=== PATIENT | male | born 1955 | race Caucasian/White ===

== ENCOUNTER → 2017-02-17 | Outpatient (CLI) | payer OTHER | LOC: CIMAGING 09:58 | PROVIDERS: ATTEND Family Medicine | DX: S13.170A Subluxation of C6/C7 cervical vertebrae, initial encounter (principal); M50.31 Other cervical disc degeneration, high cervical region; M50.33 Other cervical disc degeneration, cervicothoracic region; M48.02 Spinal stenosis, cervical region | CPT/HCPCS: 72050-PO ==

== ENCOUNTER 2017-11-18 17:13 | Emergency (ER) | payer OTHER ==
[2017-11-18 17:30] VITALS: BP 140/81; O2SAT 93
[2017-11-18] MEDS ORDERED: ACETAMINOPHEN 500 MG TAB PO ONE (17:36)
[2017-11-18] MEDS ORDERED: OSELTAMIVIR PHOSPHATE 75 MG CAP PO ONE (17:59)
[2017-11-18] MEDS ORDERED: IBUPROFEN 600 MG TAB PO ONE (17:59)
[2017-11-18] MEDS ORDERED: BENZONATATE 100 MG CAP PO ONE (17:59)
--- NOTE | 2017-11-18 18:04 | EDPHY ---
H & P Time Seen by Provider: 11/18/17 17:34 HPI/ROS: HPI Cough, flu-like symptoms. 62-year-old male by private vehicle. This patient complaining nonproductive cough, muscle aches and joint aches, sore throat, fever and fatigue onset evening. No ill contacts. He reports he was vaccinated for influenza. ROS: Constitutional: As above. Eyes: No discharge. No changes in vision. ENT: As above. No nasal congestion or rhinorrhea. Respiratory: As above. No shortness of breath. Cardiac: No chest pain, no palpitations. Gastrointestinal: No abdominal pain, no vomiting, no diarrhea. Genitourinary: No hematuria. No dysuria or increased frequency with urination. Musculoskeletal: No back pain. No neck pain. As above. Skin: No rashes. Neurological: No headache. No focal weakness or altered sensation. Past medical history: Denies any significant past medical history. Takes Ambien to help him sleep. Social history: Nonsmoker. No alcohol. Here by himself. Physical Exam: General Appearance: Alert, no distress. This patient is responding to questions appropriately and in full sentences. This patient appears well- hydrated and well-nourished. Eyes: Pupils equal and round no pallor or injection. No lid edema, erythema or injection. ENT, Mouth: Mucous membranes are moist. The pharyngeal tissues are unremarkable. No edema or swelling. No asymmetry suggestive of abscess. No erythema or exudates. No voice changes. No stridor. No cervical, submandibular, submental lymphadenopathy. Respiratory: There are no retractions, lungs are clear to auscultation with good air movement bilaterally. No tachypnea. Cardiovascular: Regular rate and rhythm. No murmur. Neurological: Motor sensory function is grossly intact. Cranial nerves are normal. Gait is normal. Skin: Warm and dry, no rashes. Musculoskeletal: Neck is supple and nontender. No pain on flexion of the neck. Extremities are symmetrical. All joints range without pain or impingement. Psychiatric: No agitation. No depression. Database: EKG: Imaging: Chest x-ray PA and lateral; the cardiac mediastinal silhouette is unremarkable. No evidence of infiltrate or pneumothorax. No acute cardiopulmonary disease process noted. Interpreted by me. Procedures: Emergency department course: Vital signs reviewed. He is febrile. Vital signs are otherwise unremarkable. Patient's presentation is consistent with influenza. Chest x-ray for a obtained from triage. Results of chest x-ray discussed with him. Diagnosis of probable influenza discussed despite negative rapid test. I discussed dosing cons of Tamiflu administration. He would like this medication. He was given 75 mg in the emergency department. He was also given 1 g of Tylenol, 600 mg of ibuprofen and Tessalon perle for cough. He feels comfortable going home. I will prescribe him these above medications. I discussed follow-up with his primary care physician on Monday or Monday of this week. Return to emergency department precautions were thoroughly reviewed. All of his questions were answered. He was discharged in good condition. Differential Diagnosis: The differential diagnosis on this patient includes but is not limited to influenza, viral syndrome, bronchitis. Pneumonia, serious bacterial infection unlikely. This represents a partial list of diagnoses considered. These considerations are based on history, physical exam, past history, reassessment and diagnostic testing. Smoking Status: Former smoker Constitutional: Initial Vital Signs Temperature (C) 38.6 C H 11/18/17 17:25 Heart Rate 92 11/18/17 17:25 Respiratory Rate 20 11/18/17 17:25 Blood Pressure 140/81 H 11/18/17 17:25 O2 Sat (%) 93 11/18/17 17:25 O2 Delivery Mode Room Air Allergies/Adverse Reactions: No Known Allergies Allergy (Verified 11/18/17 17:30) Home Medications: Medication Instructions Recorded Ambien PRN 11/18/17 Benzonatate [Tessalon Pearles] 100 mg PO TID #12 cap 11/18/17 Oseltamivir Phosphate [Tamiflu 75 75 mg PO BID #10 cap 11/18/17 mg (RX)] Medical Decision Making - Diagnostics Imaging Results: Imaging Impressions Chest X-Ray 11/18/17 17:27 Impression: Normal. - Data Points Laboratory Results: 11/18/17 17:35 Influenza A,B Rapid NEGATIVE FOR FLU (NEGATIVE) Medications Given: Discontinued Medications Acetaminophen (Tylenol) 1,000 mg PO EDNOW ONE Stop: 11/18/17 17:37 Last Admin: 11/18/17 17:41 Dose: 1,000 mg Departure - Departure Disposition: Home, Routine, Self-Care Clinical Impression: Influenza Condition: Good Instructions: Influenza (ED) Additional Instructions: Read and follow provided instructions. Follow-up with your primary care physician on Monday or Monday of this week for re-evaluation. Take medication as prescribed. Return to the emergency department for worsening symptoms, worsening cough, difficulty breathing, vomiting, high fever or other serious concerns. Adult Pain & Fever Control: We recommend Acetaminophen (Tylenol) and Ibuprofen (Motrin,Advil) for pain and fever control. When fever is high or pain severe, both drugs can be used at the same time, but at different intervals. Please note the time differences. Your dose is: Acetaminophen 650-1000mg every 6 hours for 3 days. Ibuprofen 600mg every 6 hours with food for 3 days. Note: do not take Acetaminophen with Hydrocodone (Vicodin, Lortab) or Oycodone (Percocet). These medications also contain Acetaminophen. No more than 3000mg of Acetaminophen should be taken in 24 hours (for an adult). Referrals: Prateek Sears DO [Primary Care Provider] - As per Instructions Prescriptions: Benzonatate [Tessalon Pearles] 100 mg PO TID #12 cap Oseltamivir Phosphate [Tamiflu 75 mg (RX)] 75 mg PO BID #10 cap
[2017-11-18 18:22] VITALS: PULSE 90; RESP 18; TEMP 100
== END 2017-11-18 18:20 | disposition home or self-care (01) ==
LOC: CED 17:13
DX: J11.1 Influenza due to unidentified influenza virus with other respiratory manifestations (principal); Z87.891 Personal history of nicotine dependence
CPT/HCPCS: 71046-PO; 87400-PO

== ENCOUNTER → 2018-07-13 | Outpatient (CLI) | payer OTHER | LOC: BRMIMAGING 10:53 | PROVIDERS: ATTEND Family Medicine | DX: S46.211A Strain of muscle, fascia and tendon of other parts of biceps, right arm, initial encounter (principal) ==